=== PATIENT | male | born 2000 | race Caucasian/White ===

== ENCOUNTER 2022-07-01 10:47 | Emergency (ER) | payer MEDICAID ==
[~2022-07-01] VITALS: Ht 182.9 cm; Wt 75.0 kg
[2022-07-01 10:56] VITALS: BP 112/72
[2022-07-01] MEDS ORDERED: AMOX-117 PO (12:16)
== END 2022-07-01 13:20 | disposition home or self-care (01) ==
LOC: ER 10:48
DX: R68.84 Jaw pain (principal)
CPT/HCPCS: 99283

== ENCOUNTER 2023-01-31 23:44 | Emergency (ER) | payer MEDICAID ==
[~2023-01-31] VITALS: Ht 182.9 cm; Wt 75.0 kg
[2023-02-01 00:04] VITALS: BP 127/79; PULSE 69; RESP 16; TEMP 98.4; O2SAT 99
== END 2023-02-01 03:10 | disposition home or self-care (01) ==
LOC: ER 23:44
DX: M79.601 Pain in right arm (principal)
CPT/HCPCS: 99281